=== PATIENT | male | born 1935 | race Caucasian/White ===

== ENCOUNTER 2016-08-12 18:18 | Observation (INO) | payer OTHER ==
[~2016-08-12] VITALS: Ht 182.9 cm; Wt 75.0 kg
[~2016-08-12 18:18] MED LIST: ASPI325T PO; BUDE150T PO; MULT-65 PO; OXYC-360 PO
[2016-08-12 18:22] VITALS: BP 129/78; PULSE 61; RESP 20; TEMP 97.9; O2SAT 97
[2016-08-12] MEDS ORDERED: ASPI1TAB69 PO (22:15)
[2016-08-12] MEDS ORDERED: ATOR20TA15 PO (22:15)
[2016-08-12] MEDS ORDERED: BUPR100T4 PO (22:16)
[2016-08-12] MEDS ORDERED: SODIUM CHLOR 0.9% 1000 ML INJ 1,000 ML IV SCH (22:24)
--- NOTE | 2016-08-12 22:24 | PD ---
HPI Chief Complaint: GI Complaint Time Seen by Provider: 22:08 Travel History International Travel<30 days: No Contact w/Intl Traveler<30days: No Traveled to known affect area: No History of Present Illness HPI The patient is a 80-year-old male who presents emergency department for left lower quadrant abdominal pain and left inguinal pain for one week. The patient states his symptoms started out mild, however, progressively worsened. The patient was seen by his urologist, Dr. Luis, who ordered an outpatient CT the abdomen and pelvis with IV contrast according to the patient. The patient states he had the CT scan completed last week, on , [facility], however, doesn't know the results. He notes increasing pain the left lower quadrant with occasional bulge in the left lower abdomen in the left inguinal region. He denies any history of known inguinal hernias. He does have a history of bladder cancer with previous removal of the bladder and a new bladder form from colon, according to the patient. He denies any dysuria, or change in bowel habits. Symptoms are moderate, there are no known alleviating or exacerbating factors. PFSH Past Medical History Depression: Yes Cancer: Yes (BLADDER CA) Cardiovascular Problems: No Diabetes: No Diminished Hearing: Yes Endocrine: No Gastrointestinal Disorders: Yes (ON PROBIOTICS) Genitourinary: Yes (BLADDER BLOCKAGE) Hepatitis: No Hiatal Hernia: No Hypertension: Yes Immune Disorder: No Medical other: Yes Musculoskeletal: No Neurologic: No Reproductive: Yes (PROSTATE SX) Respiratory: No Immunizations Current: Yes Thyroid Disease: No Influenza Vaccination: Yes Past Surgical History Abdominal Surgery: Yes (PROSTATE AND BLADDER) AICD: No Cardiac Surgery: No Cholecystectomy: Yes (5-6 YEARS AGO) Ear Surgery: No Endocrine Surgery: No Eye Surgery: No Genitourinary Surgery: Yes (PROSTATE AND BLADDER) Joint Replacement: No Oral Surgery: No Pacemaker: No Thoracic Surgery: No Other Surgery: Yes (BLADDER SX, LETA, PROSTATE SX) Social History Alcohol Use: Yes (OCC.) Tobacco Use: Yes (1 PPD) Substance Use: No Allergies-Medications (Allergen,Severity, Reaction): Coded Allergies: Penicillin (Verified Allergy, Severe, Anaphylaxis, 08/12/16) Reported Meds & Prescriptions Reported Meds & Active Scripts Active Reported Bupropion HCl 100 Mg Tab 100 Mg PO HS Atorvastatin (Atorvastatin Calcium) 20 Mg Tab 20 Mg PO HS Aspirin 81 Mg Tabdr 81 Mg PO DAILY Review of Systems Except as stated in HPI: all other systems reviewed are Neg General / Constitutional: No: Fever Cardiovascular: No: Chest Pain or Discomfort Respiratory: No: Shortness of Breath Gastrointestinal: Positive: Abdominal Pain, No: Nausea, Vomiting Genitourinary: Positive: Pelvic Pain, Other (as noted in the history of present illness), No: Dysuria Skin: No Rash Physical Exam Narrative GENERAL: Awake, alert, nontoxic-appearing 80-year-old male who appears his stated age and is in no acute respiratory distress. SKIN: Warm and dry. HEAD: Atraumatic. Normocephalic. EYES: No injection or drainage. ENT: No nasal bleeding or discharge. Mucous membranes pink and moist. NECK: Trachea midline. No JVD. CARDIOVASCULAR: Regular rate and rhythm. No murmur appreciated. RESPIRATORY: No accessory muscle use. Clear to auscultation. Breath sounds equal bilaterally. GASTROINTESTINAL: Abdomen soft, non-tender, mild bulge and left inguinal region which is tender to palpation. Genitourinary: Circumcised phallus. Both testicles are descended. No tenderness over the epididymis or testicle. MUSCULOSKELETAL: No obvious deformities. No clubbing. No cyanosis. No edema. NEUROLOGICAL: Awake and alert. No obvious cranial nerve deficits. Motor grossly within normal limits. Normal speech. PSYCHIATRIC: Appropriate mood and affect; insight and judgment normal. Data Data Last Documented VS Vital Signs Date Time Temp Pulse Resp B/P Pulse Ox O2 Delivery O2 Flow Rate FiO2 08/12/16 23:10 16 96 Room Air 08/12/16 18:22 97.9 61 129/78 Orders Complete Blood Count With Diff (08/12/16 22:24) Comprehensive Metabolic Panel (08/12/16 22:24) Lipase (08/12/16 22:24) Urinalysis - C+S If Indicated (08/12/16 22:24) Ct Abd/Pel W/O Iv Contrast (08/12/16 22:24) Iv Access Insert/Monitor (08/12/16 22:24) Ecg Monitoring (08/12/16 22:24) Oximetry (08/12/16 22:24) Morphine Inj (Morphine Inj) (08/12/16 22:30) Ondansetron Inj (Zofran Inj) (08/12/16 22:30) Sodium Chlor 0.9% 1000 Ml Inj (Ns 1000 M (08/12/16 22:24) Sodium Chloride 0.9% Flush (Ns Flush) (08/12/16 22:30) Urine Culture (08/12/16 23:00) Ciprofloxacin 400 Mg Premix (Cipro 400 M (08/13/16 00:15) Labs Laboratory Tests Test 08/12/16 08/12/16 23:00 23:05 Urine Color YELLOW Urine Turbidity HAZY Urine pH 6.5 Urine Specific [place] 1.011 Urine Protein TRACE mg/dL Urine Glucose (UA) NEG mg/dL Urine Ketones NEG mg/dL Urine Occult Blood TRACE Urine Nitrite NEG Urine Bilirubin NEG Urine Urobilinogen LESS THAN 2.0 MG/DL Urine Leukocyte Esterase LARGE Urine RBC 6 /hpf Urine WBC 49 /hpf Urine WBC Clumps OCC Urine Amorphous Sediment RARE Urine Bacteria MANY /hpf Urine Mucus FEW /lpf Microscopic Urinalysis Comment CULTURE INDICATED White Blood Count 8.3 TH/MM3 Red Blood Count 4.70 MIL/MM3 Hemoglobin 14.8 GM/DL Hematocrit 42.6 % Mean Corpuscular Volume 90.8 FL Mean Corpuscular Hemoglobin 31.4 PG Mean Corpuscular Hemoglobin 34.6 % Concent Red Cell Distribution Width 13.7 % Platelet Count 117 TH/MM3 Mean Platelet Volume 10.4 FL Neutrophils (%) (Auto) 57.0 % Lymphocytes (%) (Auto) 24.4 % Monocytes (%) (Auto) 10.7 % Eosinophils (%) (Auto) 6.5 % Basophils (%) (Auto) 1.4 % Neutrophils # (Auto) 4.7 TH/MM3 Lymphocytes # (Auto) 2.0 TH/MM3 Monocytes # (Auto) 0.9 TH/MM3 Eosinophils # (Auto) 0.5 TH/MM3 Basophils # (Auto) 0.1 TH/MM3 CBC Comment DIFF FINAL Differential Comment Sodium Level 146 MEQ/L Potassium Level 3.6 MEQ/L Chloride Level 112 MEQ/L Carbon Dioxide Level 27.4 MEQ/L Anion Gap 7 MEQ/L Blood Urea Nitrogen 27 MG/DL Creatinine 1.28 MG/DL Estimat Glomerular Filtration 54 ML/MIN Rate Random Glucose 118 MG/DL Calcium Level 8.8 MG/DL Total Bilirubin 0.3 MG/DL Aspartate Amino Transf 13 U/L (AST/SGOT) Alanine Aminotransferase 23 U/L (ALT/SGPT) Alkaline Phosphatase 92 U/L Total Protein 6.3 GM/DL Albumin 3.5 GM/DL Lipase 146 U/L MDM Medical Decision Making Medical Screen Exam Complete: Yes Emergency Medical Condition: Yes Medical Record Reviewed: Yes Interpretation(s) KUB only abdomen x-ray performed at [facility] imaging 20 legs on July 23, 2016 reveals no definite calcifications are seen overlying the kidneys. Nonspecific bowel gas pattern with some air-fluid levels a small and large bowel. Ultrasound bilateral renal bladder performed July 23, 2016 at [facility] imaging reveals new hydronephrosis of the right upper collecting system suggestive of obstruction. Benign I lateral renal cyst. Nonobstructing stone midpole left kidney measuring 7 mm. Last Impressions Abdomen/Pelvis CT 08/12/162223 Signed Impressions: Service Date/Time: Friday, August 12, 2016 22:37 - CONCLUSION: 1. Left inguinal hernia containing small loop of sigmoid colon. Slight inflammatory changes. Surgical consultation recommended. 2. Status post cholecystectomy. 3. Bilateral renal cysts. 4. Prostatectomy. Derek Issa MD Laboratory Tests Test 08/12/16 08/12/16 23:00 23:05 Urine Color YELLOW Urine Turbidity HAZY Urine pH 6.5 Urine Specific [place] 1.011 Urine Protein TRACE mg/dL Urine Glucose (UA) NEG mg/dL Urine Ketones NEG mg/dL Urine Occult Blood TRACE Urine Nitrite NEG Urine Bilirubin NEG Urine Urobilinogen LESS THAN 2.0 MG/DL Urine Leukocyte Esterase LARGE Urine RBC 6 /hpf Urine WBC 49 /hpf Urine WBC Clumps OCC Urine Amorphous Sediment RARE Urine Bacteria MANY /hpf Urine Mucus FEW /lpf Microscopic Urinalysis Comment CULTURE INDICATED White Blood Count 8.3 TH/MM3 Red Blood Count 4.70 MIL/MM3 Hemoglobin 14.8 GM/DL Hematocrit 42.6 % Mean Corpuscular Volume 90.8 FL Mean Corpuscular Hemoglobin 31.4 PG Mean Corpuscular Hemoglobin 34.6 % Concent Red Cell Distribution Width 13.7 % Platelet Count 117 TH/MM3 Mean Platelet Volume 10.4 FL Neutrophils (%) (Auto) 57.0 % Lymphocytes (%) (Auto) 24.4 % Monocytes (%) (Auto) 10.7 % Eosinophils (%) (Auto) 6.5 % Basophils (%) (Auto) 1.4 % Neutrophils # (Auto) 4.7 TH/MM3 Lymphocytes # (Auto) 2.0 TH/MM3 Monocytes # (Auto) 0.9 TH/MM3 Eosinophils # (Auto) 0.5 TH/MM3 Basophils # (Auto) 0.1 TH/MM3 CBC Comment DIFF FINAL Differential Comment Sodium Level 146 MEQ/L Potassium Level 3.6 MEQ/L Chloride Level 112 MEQ/L Carbon Dioxide Level 27.4 MEQ/L Anion Gap 7 MEQ/L Blood Urea Nitrogen 27 MG/DL Creatinine 1.28 MG/DL Estimat Glomerular Filtration 54 ML/MIN Rate Random Glucose 118 MG/DL Calcium Level 8.8 MG/DL Total Bilirubin 0.3 MG/DL Aspartate Amino Transf 13 U/L (AST/SGOT) Alanine Aminotransferase 23 U/L (ALT/SGPT) Alkaline Phosphatase 92 U/L Total Protein 6.3 GM/DL Albumin 3.5 GM/DL Lipase 146 U/L Differential Diagnosis Differential diagnosis includes incarcerated hernia, strangulated hernia, left inguinal hernia, diverticulitis, epididymitis, UTI, volvulus, partial obstruction. Narrative Course IV was established, labs are drawn and sent, and the patient was placed on cardiac telemetry monitoring and continuous pulse oximetry monitoring. I reviewed the [facility] imaging, noted an ultrasound of the kidneys and KUB that was performed last month, but there is no evidence of the CT performed last week. Therefore, CT of the abdomen and pelvis was ordered to evaluate for possible mass versus left inguinal hernia versus diverticulitis. The patient was administered morphine, Zofran, and IV fluids. CT of the abdomen and pelvis reveals sigmoid: Rachel within the left inguinal canal with inflammatory changes. The patient was placed flat with ice over the left groin, the hernia did reduce. However, CT recommended surgical consultation. Unsure if the inflammatory changes are related to diverticulitis versus strangulated hernia that is now reduced. UA is positive for infection, patient does self catheter secondary to his history of bladder cancer with bladder reconstruction. I discussed the patient with Dr. Ware who agrees with 23 hour observation to medicine and he will evaluate the patient in the morning. The hernia has reduced. This is somewhat unusual as the patient had sigmoid colon with inflammatory changes in the left inguinal canal, unsure if this is secondary to his previous surgery with removal of bowel to foreign bladder. As patient's UA was positive, patient was administered Cipro. Patient will be 23 hour observation. Physician Communication Physician Communication I discussed the patient with Dr. Kebede who agrees with 23 hour observation. Diagnosis Primary Impression: Left inguinal hernia Additional Impression: Complicated urinary tract infection Admitting Information Admitting Physician Requests: Observation Condition: Stable Ciaran Ward MD Aug 12, 2016 22:24
[2016-08-12] MEDS ORDERED: MORPHINE SULFATE 4 MG/ML INJ IV PUSH ONE (22:30)
[2016-08-12] MEDS ORDERED: ONDANSETRON HCL 4 MG/2 ML VIAL IVP ONE (22:30)
[2016-08-12] MEDS ORDERED: SODIUM CHLORIDE 0.9% FLUSH 5 ML FLUSH IVF PRN (22:30)
--- NOTE | 2016-08-12 22:55 | RADRPT ---
EXAM DATE/TIME: 08/12/2016 22:37 [facility] COMPARISON: No previous studies available for comparison. INDICATIONS : LLQ abdominal pain for 1 week; history of bladder cancer. ORAL CONTRAST: No oral contrast ingested. RADIATION DOSE: 9.96 CTDIvol (mGy) MEDICAL HISTORY : Hypertension. Carcinoma, bladder. SURGICAL HISTORY : Cholecystectomy. Prostatectomy. ENCOUNTER: Initial ACUITY: 1 week PAIN SCALE: 4/10 LOCATION: Left lower quadrant Abdomen/pelvis TECHNIQUE: Volumetric scanning of the abdomen and pelvis was performed. Using automated exposure control and ad justment of the mA and/or kV according to patient size, radiation dose was kept as low as reasonably achievable to obtain optimal diagnostic quality images. FINDINGS: LOWER LUNGS: The visualized lower lungs are clear. LIVER: Homogeneous density without lesion. There is no dilation of the biliary tree. Post cystectomy. SPLEEN: Normal size without lesion. PANCREAS: Within normal limits. KIDNEYS: Normal in size and shape. There is no mass, stone, or hydronephrosis. Bilateral renal densities. ADRENAL GLANDS: Within normal limits. VASCULAR: There is no aortic aneurysm. BOWEL/MESENTERY: There is left inguinal hernia containing loop of sigmoid colon with some minimal inflammatory changes . No obstruction. Anastomotic sutures in the right abdomen. There is no free intraperitoneal air or fluid. ABDOMINAL WALL: Within normal limits. RETROPERITONEUM: There is no lymphadenopathy. BLADDER: No wall thickening or mass. REPRODUCTIVE: Prostatectomy. INGUINAL: There is no lymphadenopathy or hernia on the right. Left inguinal hernia. MUSCULOSKELETAL: Within normal limits for patient age. CONCLUSION: 1. Left inguinal hernia containing small loop of sigmoid colon. Slight inflammatory changes. Surgical consultation recommended. 2. Status post cholecystectomy. 3. Bilateral renal cysts. 4. Prostatectomy. Derek Issa MD on August 12, 2016 at 22:49 Board Certified Radiologist. This report was verified electronically.
[2016-08-12 23:00] VITALS: BP 134/69; PULSE 54; RESP 20; O2SAT 95
[2016-08-12 23:10] VITALS: RESP 16; O2SAT 96
[2016-08-12 23:29] LABS: AUTOMATED NEUTROPHIL # 4.7 TH/MM3 (1.8-7.7); BASOPHIL # 0.1 TH/MM3 (0-0.2); BASOPHIL % 1.4 % (0.0-2.0); EOSINOPHIL # 0.5 TH/MM3 (0-0.4); EOSINOPHIL % 6.5 % (0.0-4.0); HEMATOCRIT 42.6 % (39.0-51.0); HEMO FLAGS DIFF FINAL; LYMPH % 24.4 % (9.0-44.0); MEAN CELL VOLUME 90.8 FL (80.0-100.0); MEAN CORPUSCULAR HEMOGLOBIN 31.4 PG (27.0-34.0); MEAN CORPUSCULAR HGB CONC 34.6 % (32.0-36.0); MONO % 10.7 % (0.0-8.0); PLATELET COUNT 117 TH/MM3 (150-450); RED CELL DISTRIBUTION WIDTH 13.7 % (11.6-17.2); WHITE BLOOD COUNT 8.3 TH/MM3 (4.0-11.0)
[2016-08-12 23:37] LABS: BACTERIA, URINE MANY /hpf; BLOOD, URINE TRACE (NEG); COMMENT (UR) CULTURE INDICATED; CULTURE IF INDICATED CULTURE INDICATED; GLUCOSE,URINE NEG (NEG); KETONE, URINE NEG (NEG); MUCUS URINE FEW /lpf (OCC); NITRITE,URINE NEG (NEG); PH, URINE 6.5 (5.0-8.5); URINE COLOR YELLOW (YELLW/STRAW)
[2016-08-12 23:41] LABS: ANION GAP 7 MEQ/L (5-15); AST (GOT) 13 U/L (15-37); BICARBONATE 27.4 MEQ/L (21.0-32.0); BLOOD UREA NITROGEN 27 MG/DL (7-18); CHLORIDE 112 MEQ/L (98-107); GLOMERULAR FILTRATION RATE 54 ML/MIN (>89); POTASSIUM 3.6 MEQ/L (3.5-5.1); SODIUM (NA) 146 MEQ/L (136-145)
[2016-08-12 23:44] LABS: ALKALINE PHOSPHATASE 92 U/L (45-117); ALT (GPT) 23 U/L (12-78); TOTAL BILIRUBIN ADULT 0.3 MG/DL (0.2-1.0)
[2016-08-13] MEDS ORDERED: CIPROFLOXACIN 400 MG PREMIX 200 ML IV ONE (00:15)
[2016-08-13 01:00] VITALS: BP 131/60; PULSE 62; RESP 24; O2SAT 95
[2016-08-13] MEDS ORDERED: SODIUM CHLORID 0.9% 500 ML INJ 500 ML IV ONE (01:15)
[2016-08-13] MEDS ORDERED: NALOXONE HCL 0.4 MG/ML AMP IV PRN (01:45)
[2016-08-13] MEDS ORDERED: SODIUM CHLORIDE 0.9% FLUSH 5 ML FLUSH FLUSH PRN (01:45)
[2016-08-13] MEDS ORDERED: ONDANSETRON HCL 4 MG/2 ML VIAL IVP PRN (01:45)
[2016-08-13 03:06] VITALS: BP 113/64; PULSE 58; RESP 17; TEMP 96.5; O2SAT 94
--- NOTE | 2016-08-13 04:29 | HHI.HP ---
HPI Service [facility] Primary Care Physician Alba Gonzalez M.D. Admission Diagnosis left inguinal hernia with sigmoid colon with inflammation, UTI Diagnoses: Chief Complaint: abdominal pain Travel History International Travel<30 Days: No Contact w/Intl Traveler <30 Da: No Traveled to Known Affected Are: No History of Present Illness History from patient, ER physician communication, and review of medical records. Patient reported that he started having sharp abdominal pains in his left lower quadrant radiating down to his groin area yesterday. He stated that initially he thought it would go away and as the day goes on the pain was getting worse and therefore decided to come to hospital. He reports that he was having similar pain though it was not as severe as yesterday's episode for about a week or so. He also reports of bulging in that area on and off as well. He states that he had previous surgeries because of his bladder cancer and he thought that there might be something related to it. He stated that he had removal of this bladder and a new bladder was formed by reconstruction using pot of his colon. He denies any fever. Denies any nausea/vomiting/diarrhea/constipation. Denies any hematemesis/hematochezia/melena/hematuria. Denies any urinary burning or pain on urination. Review of Systems Except as stated in HPI: all other systems reviewed are Neg Past Family Social History Past Medical History Bladder CA Depression Hyperlipidemia Past Surgical History Bladder cancer resection Reconstructive surgery for bladder Cholecystectomy Appendectomy Prostate surgery Reported Medications Patient's medications listed in EMRreviewed Allergies: Coded Allergies: Penicillin (Verified Allergy, Severe, Anaphylaxis, 08/12/16) Family History Denies any family history of any medical conditions. Social History Denies alcohol abuse or drug abuse. Unfortunately, patient is a smoker and is still smoking a pack a day. Physical Exam Vital Signs Vital Signs Date Time Temp Pulse Resp B/P Pulse Ox O2 Delivery O2 Flow Rate FiO2 08/13/16 01:00 62 24 131/60 95 Room Air 08/12/16 23:10 16 96 Room Air 08/12/16 23:00 54 20 134/69 95 Room Air 08/12/16 18:22 97.9 61 20 129/78 97 Room Air Physical Exam GENERAL: This is a well-nourished, well-developed patient, in no apparent distress. SKIN: No rashes, ecchymoses or lesions. Cool and dry. HEAD: Atraumatic. Normocephalic. No temporal or scalp tenderness. EYES: . No scleral icterus. No injection or drainage. ENT: Nose without bleeding, purulent drainage or septal hematoma. Airway patent. NECK: Trachea midline. No JVD CARDIOVASCULAR: Regular rate and rhythm without murmurs, gallops, or rubs. RESPIRATORY: Clear to auscultation. Breath sounds equal bilaterally. No wheezes , rales, or rhonchi. GASTROINTESTINAL: Abdomen soft, non-tender, nondistended. No guarding. MUSCULOSKELETAL: Extremities without clubbing, cyanosis, or edema. No calf tenderness. NEUROLOGICAL: Awake and alert. Motor and sensory grossly within normal limits. Normal speech. Laboratory Laboratory Tests Test 08/12/16 08/12/16 23:00 23:05 Urine Color YELLOW Urine Turbidity HAZY Urine pH 6.5 Urine Specific [place] 1.011 Urine Protein TRACE Urine Glucose (UA) NEG Urine Ketones NEG Urine Occult Blood TRACE Urine Nitrite NEG Urine Bilirubin NEG Urine Urobilinogen LESS THAN 2.0 Urine Leukocyte Esterase LARGE Urine RBC 6 Urine WBC 49 Urine WBC Clumps OCC Urine Amorphous Sediment RARE Urine Bacteria MANY Urine Mucus FEW Microscopic Urinalysis Comment CULTURE INDICATED White Blood Count 8.3 Red Blood Count 4.70 Hemoglobin 14.8 Hematocrit 42.6 Mean Corpuscular Volume 90.8 Mean Corpuscular Hemoglobin 31.4 Mean Corpuscular Hemoglobin 34.6 Concent Red Cell Distribution Width 13.7 Platelet Count 117 Mean Platelet Volume 10.4 Neutrophils (%) (Auto) 57.0 Lymphocytes (%) (Auto) 24.4 Monocytes (%) (Auto) 10.7 Eosinophils (%) (Auto) 6.5 Basophils (%) (Auto) 1.4 Neutrophils # (Auto) 4.7 Lymphocytes # (Auto) 2.0 Monocytes # (Auto) 0.9 Eosinophils # (Auto) 0.5 Basophils # (Auto) 0.1 CBC Comment DIFF FINAL Differential Comment Sodium Level 146 Potassium Level 3.6 Chloride Level 112 Carbon Dioxide Level 27.4 Anion Gap 7 Blood Urea Nitrogen 27 Creatinine 1.28 Estimat Glomerular Filtration 54 Rate Random Glucose 118 Calcium Level 8.8 Total Bilirubin 0.3 Aspartate Amino Transf 13 (AST/SGOT) Alanine Aminotransferase 23 (ALT/SGPT) Alkaline Phosphatase 92 Total Protein 6.3 Albumin 3.5 Lipase 146 Date/Time Procedure Status Source Growth 08/12/16 23:00 Urine Culture Received Urine Clean Catch Pending Result Diagram: 08/12/16 23008/12/162304 Imaging Last 48 hours Impressions Abdomen/Pelvis CT 08/12/162223 Signed Impressions: Service Date/Time: Friday, August 12, 2016 22:37 - CONCLUSION: 1. Left inguinal hernia containing small loop of sigmoid colon. Slight inflammatory changes. Surgical consultation recommended. 2. Status post cholecystectomy. 3. Bilateral renal cysts. 4. Prostatectomy. Dreek Issa MD Assessment and Plan Problem List: (1) Left inguinal hernia ICD Code: K40.90 Status: Acute (2) Complicated urinary tract infection ICD Code: N39.0 Status: Acute Assessment and Plan Impression: Left Inguinal herniawith loops of sigmoid colon. Was reduced in ER. 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 Awaiting for general surgery evaluation. Pain control. Ciprofloxacin 400 mg IV every 12 hours for UTI. Will follow-up urine culture results. Resume home meds. DVT prophylaxiswith SCD. GI prophylaxis on pantoprazole. Discussed Condition With patient, ER Tracee Henry MD Aug 13, 2016 04:29
[2016-08-13 08:00] VITALS: BP 119/73; PULSE 50; RESP 16; TEMP 96.2; O2SAT 94
[2016-08-13] MEDS ORDERED: SODIUM CHLORIDE 0.9% FLUSH 5 ML FLUSH FLUSH SCH (09:00)
[2016-08-13] MEDS ORDERED: ASPIRIN EC 81 MG TABEC PO SCH (09:00)
--- NOTE | 2016-08-13 09:35 | HHI.PR ---
Subjective Remarks f/u with reduction of left inguinal hernia. patient has no complaints. He denied any pain, N/V. He stated he is ready to go home and rather no do surgery if not indicated. no acute events at night and remains afebrile. Objective Vitals Vital Signs Date Time Temp Pulse Resp B/P Pulse Ox O2 Delivery O2 Flow Rate FiO2 08/13/16 03:06 96.5 58 17 113/64 94 08/13/16 01:00 62 24 131/60 95 Room Air 08/12/16 23:10 16 96 Room Air 08/12/16 23:00 54 20 134/69 95 Room Air 08/12/16 18:22 97.9 61 20 129/78 97 Room Air I/O 08/12/16 08/12/16 08/12/16 08/13/16 08/13/16 08/13/16 07:00 15:00 23:00 07:00 15:00 23:00 Intake Total 0 ml Output Total 0 ml Balance 0 ml Intake Oral 0 ml Output Urine Total 0 ml # Bowel Movements 0 Result Diagram: 08/12/16 2305 08/12/16 2305 Objective Remarks GENERAL: in NAD SKIN: Warm and dry. CARDIOVASCULAR: Regular rate and rhythm without murmurs, gallops, or rubs. RESPIRATORY: Breath sounds equal bilaterally. No accessory muscle use. GASTROINTESTINAL: Abdomen soft, non-tender, nondistended. left groin area mild TTP. hernia reduced Medications and IVs Current Medications Morphine Sulfate (Morphine Inj) 4 mg ONCE ONCE IV PUSH Last administered on 23:11; Start 08/12/16 at 22:30; Stop 08/12/16 at 22:31; Status DC Ondansetron HCl 4 mg 4 mg ONCE ONCE IVP Last administered on 08/12/16 23:12; Start 08/12/16 at 22:30; Stop 08/12/16 at 22:31; Status DC Sodium Chloride (NS 1000 ml Inj) 1,000 ml @ 125 mls/hr Q8H IV Last administered on 08/12/16 23:11; Start 08/12/16 at 22:24; Stop 08/13/16 at 06:23; Status DC IV Flush 2 ml 2 ml UNSCH PRN IVF FLUSH AFTER USING IV ACCESS; Start 08/12/16 at 22:30; Stop 08/13/16 at 01:43; Status DC Ciprofloxacin/ Dextrose 200 ml @ 200 mls/hr ONCE ONCE IV Last administered on 08/13/16t 01:13; Start 08/13/16 at 00:15; Stop 08/13/16 at 01:14; Status DC Sodium Chloride (NS 500 ml Inj) 500 ml @ 500 mls/hr BOLUS ONCE IV ; Start 08/13 at 01:15; Stop 08/13/16 at 02:14; Status DC IV Flush (NS Flush) 2 ml UNSCH PRN FLUSH FLUSH AFTER USING IV ACCESS; Start 08/13/16 at 01:45 IV Flush (NS Flush) 2 ml BID FLUSH ; Start 08/13/16 at 09:00 Ondansetron HCl (Zofran Inj) 4 mg Q6H PRN IVP NAUSEA OR VOMITING; Start at 01:45 Naloxone HCl 0.4 mg 0.4 mg UNSCH PRN IV SEE LABEL COMMENTS; Start 08/13/16 at 01 :45 Ciprofloxacin/ Dextrose (Cipro 400 Mg Premix) 200 ml @ 200 mls/hr Q12H IV ; Start 08/13/16 at 13:00 Aspirin (Ecotrin Ec) 81 mg DAILY PO ; Start 08/13/16 at 09:00 Atorvastatin Calcium (Lipitor) 20 mg HS PO ; Start 08/13/16 at 21:00 Bupropion HCl (Wellbutrin) 100 mg HS PO ; Start 08/13/16 at 21:00 A/P Problem List: (1) Left inguinal hernia ICD Code: K40.90 Status: Acute (2) Complicated urinary tract infection ICD Code: N39.0 Status: Acute Assessment and Plan Left Inguinal hernia with loops of sigmoid colon. - Was reduced in ER. -pending recommendations from general surgery. -at the moment asymptomatic. -continue NPO pending recommendations. UTI -asymptomatic. 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 -continue pending cultures. DVT prophylaxiswith SCD. GI prophylaxis on pantoprazole. Discharge Planning Pending recommendations from Surgery. At the moment asymptotic. If no indication for surgery can be d/c to home. Tahira Delatorre MD Aug 13, 2016 09:35
--- NOTE | 2016-08-13 11:34 | PD.CONS ---
cc: Farhad Ware MD HPI Service General Surgery Consult Requested By Dr. Kebede Reason for Consult Eval for LEFT inguinal hernia Primary Care Physician Alba Gonzalez M.D. History of Present Illness This is a 80-year-old male who started having left groin pain about a week ago. The pain is a 5/10, currently 6/10, dull, radiating down groin, worse with movement, better with pain meds. He noticed over this time a bulge developed an increase inside size over this week. 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 He came to the emergency room for evaluation of the pain. He was found to have a left inguinal hernia which was reduced in the ED. Currently the patient reports no pain since the hernia was reduced and is passing gas. He feels hungry. A General surgery consult was requested for evaluation of left inguinal hernia and possible surgical intervention Review of Systems Constitutional: DENIES: Fever, Weight gain, Weight loss Endocrine: DENIES: Polydipsia, Polyuria, Polyphagia Eyes: DENIES: Eye inflammation, Eye pain Ears, nose, mouth, throat: DENIES: Hearing loss, Nasal discharge, Oral lesions Respiratory: DENIES: Cough, Snoring, Wheezing Cardiovascular: DENIES: Chest pain, Palpitations Gastrointestinal: DENIES: Abdominal pain Genitourinary: DENIES: Urinary frequency, Urinary incontinence, Urgency Musculoskeletal: DENIES: Joint pain Integumentary: DENIES: Abnormal pigmentation Hematologic/lymphatic: DENIES: Bruising Immunologic/allergic: DENIES: Eczema Neurologic: DENIES: Abnormal gait, Headache Psychiatric: DENIES: Confusion, Mood changes, Depression Past Family Social History Past Medical History Bladder cancer Depression Hyperlipidemia Past Surgical History Bladder cancer resection Reconstructive surgery for bladder Cholecystectomy Appendectomy Prostate surgery Reported Medications See chart Allergies: Coded Allergies: Penicillin (Verified Allergy, Severe, Anaphylaxis, 08/12/16) Active Ordered Medications Current Medications Medications (Trade) Dose Ordered Sig/Em Route Start Time Stop Time Status Last Admin (NS Flush) 2 ml UNSCH PRN FLUSH 08/13/16 01:45 (NS Flush) 2 ml BID FLUSH 08/13/16 09:00 (Zofran Inj) 4 mg Q6H PRN IVP 08/13/16 01:45 Naloxone HCl 0.4 mg 0.4 mg UNSCH PRN IV 08/13/16 01:45 (Cipro 400 Mg Premix) 200 ml @ 200 mls/hr Q12H IV 08/13/16 13:00 (Ecotrin Ec) 81 mg DAILY PO 08/13/16 09:00 (Lipitor) 20 mg HS PO 08/13/16 21:00 (Wellbutrin) 100 mg HS PO 08/13/16 21:00 Family History Noncontributory Social History Current smoker-1 pack per day Denies alcohol use Denies illicit drug use Physical Exam Vital Signs Vital Signs Date Time Temp Pulse Resp B/P Pulse Ox O2 Delivery O2 Flow Rate FiO2 08/13/16 08:00 96.2 50 16 119/73 94 08/13/16 03:06 96.5 58 17 113/64 94 08/13/16 01:00 62 24 131/60 95 Room Air 08/12/16 23:10 16 96 Room Air 08/12/16 23:00 54 20 134/69 95 Room Air 08/12/16 18:22 97.9 61 20 129/78 97 Room Air Physical Exam GENERAL: 80 year old male looks younger than stated age resting in bed comfortably SKIN: Warm and dry. HEAD: Atraumatic. Normocephalic. EYES: Pupils equal and round. No scleral icterus. No injection or drainage. ENT: No nasal bleeding or discharge. Mucous membranes pink and moist. NECK: Trachea midline. CARDIOVASCULAR: Regular rate and rhythm. RESPIRATORY: No accessory muscle use. Clear to auscultation. Breath sounds equal bilaterally. GASTROINTESTINAL: Abdomen soft, non-tender, nondistended. No pain in LEFT inguinal region; no hernia. MUSCULOSKELETAL: Extremities without clubbing, cyanosis, or edema. No obvious deformities. NEUROLOGICAL: Awake and alert. No obvious cranial nerve deficits. Motor grossly within normal limits. Five out of 5 muscle strength in the arms and legs. Normal speech. PSYCHIATRIC: Appropriate mood and affect; insight and judgment normal. Laboratory Laboratory Tests Test 08/12/16 08/12/16 23:00 23:05 Urine Color YELLOW Urine Turbidity HAZY Urine pH 6.5 Urine Specific [place] 1.011 Urine Protein TRACE Urine Glucose (UA) NEG Urine Ketones NEG Urine Occult Blood TRACE Urine Nitrite NEG Urine Bilirubin NEG Urine Urobilinogen LESS THAN 2.0 Urine Leukocyte Esterase LARGE Urine RBC 6 Urine WBC 49 Urine WBC Clumps OCC Urine Amorphous Sediment RARE Urine Bacteria MANY Urine Mucus FEW Microscopic Urinalysis Comment CULTURE INDICATED White Blood Count 8.3 Red Blood Count 4.70 Hemoglobin 14.8 Hematocrit 42.6 Mean Corpuscular Volume 90.8 Mean Corpuscular Hemoglobin 31.4 Mean Corpuscular Hemoglobin 34.6 Concent Red Cell Distribution Width 13.7 Platelet Count 117 Mean Platelet Volume 10.4 Neutrophils (%) (Auto) 57.0 Lymphocytes (%) (Auto) 24.4 Monocytes (%) (Auto) 10.7 Eosinophils (%) (Auto) 6.5 Basophils (%) (Auto) 1.4 Neutrophils # (Auto) 4.7 Lymphocytes # (Auto) 2.0 Monocytes # (Auto) 0.9 Eosinophils # (Auto) 0.5 Basophils # (Auto) 0.1 CBC Comment DIFF FINAL Differential Comment Sodium Level 146 Potassium Level 3.6 Chloride Level 112 Carbon Dioxide Level 27.4 Anion Gap 7 Blood Urea Nitrogen 27 Creatinine 1.28 Estimat Glomerular Filtration 54 Rate Random Glucose 118 Calcium Level 8.8 Total Bilirubin 0.3 Aspartate Amino Transf 13 (AST/SGOT) Alanine Aminotransferase 23 (ALT/SGPT) Alkaline Phosphatase 92 Total Protein 6.3 Albumin 3.5 Lipase 146 Date/Time Procedure Status Source Growth 08/12/16 23:00 Urine Culture Received Urine Clean Catch Pending Imaging Last 48 hours Impressions Abdomen/Pelvis CT 08/12/164 Signed Impressions: Service Date/Time: Friday, August 12, 2016 22:37 - CONCLUSION: 1. Left inguinal hernia containing small loop of sigmoid colon. Slight inflammatory changes. Surgical consultation recommended. 2. Status post cholecystectomy. 3. Bilateral renal cysts. 4. Prostatectomy. Derek Issa MD Assessment and Plan Assessment and Plan 80 year old male with LEFT inguinal hernia s/p reduction in ED -Denies pain and left normal region; no palpable hernia -Start regular diet -DC fluids -If tolerates regular diet may DC this afternoon and follow with Dr. Ware for possible elective left inguinal hernia repair Discussed Condition With Dr. Ware Nadiya Carbajal Attending Statement patient seen at bedside reduced left inguinal hernia, pain better reg diet possible d/c with elective repair discussed with patient in detail regarding risks of reincarceration pt states understanding Attestation The exam, history, and the medical decision-making described in the above note were completed with the assistance of the mid-level provider. I reviewed and agree with the findings presented. I attest that I had a [id number] encounter with the patient on the same day, and personally performed and documented my assessment and findings in the medical record. Radha Berman Aug 13, 2016 11:34 Farhad Ware MD Aug 22, 2016 21:06
--- NOTE | 2016-08-13 11:57 | HHI.DCPOC ---
Discharge Care Plan Diagnosis: (1) Left inguinal hernia (2) Complicated urinary tract infection Goals to Promote Your Health * To prevent worsening of your condition and complications * To maintain your health at the optimal level Directions to Meet Your Goals Take your medications as prescribed Follow your dietary instruction Follow activity as directed Keep your appointments as scheduled Take your immunizations and boosters as scheduled If your symptoms worsen call your PCP, if no PCP go to Urgent Care Center or Emergency Room Smoking is Dangerous to Your Health. Avoid second hand smoke Call the 24-hour hour crisis hotline for domestic abuse at Tahira Delatorre MD Aug 13, 2016 11:57
[2016-08-13] MEDS ORDERED: CIPR-9 PO ×2 (11:58→14:20)
[2016-08-13 12:00] VITALS: BP 120/74; PULSE 57; RESP 16; TEMP 97.8; O2SAT 95
[2016-08-13] MEDS ORDERED: CIPROFLOXACIN 400 MG PREMIX 200 ML IV SCH (13:00)
[2016-08-13] MEDS ORDERED: ATORVASTATIN 20 MG TAB PO SCH (21:00)
[2016-08-13] MEDS ORDERED: buPROPion HCL 100 MG TAB PO SCH (21:00)
--- NOTE | 2016-08-17 20:58 | HHI.DS ---
Discharge Summary Admission Date Aug 13, 2016 at 00:08 Discharge Date: Aug 13, 2016 Admitting Diagnosis left inguinal hernia with sigmoid colon with inflammation, UTI (1) Left inguinal hernia ICD Code: K40.90 Diagnosis: Principal (2) Complicated urinary tract infection ICD Code: N39.0 Diagnosis: Principal Procedures see hospital course Brief History - From Admission History from patient, ER physician communication, and review of medical records. Patient reported that he started having sharp abdominal pains in his left lower quadrant radiating down to his groin area yesterday. He stated that initially he thought it would go away and as the day goes on the pain was getting worse and therefore decided to come to hospital. He reports that he was having similar pain though it was not as severe as yesterday's episode for about a week or so. He also reports of bulging in that area on and off as well. He states that he had previous surgeries because of his bladder cancer and he thought that there might be something related to it. He stated that he had removal of this bladder and a new bladder was formed by reconstruction using pot of his colon. He denies any fever. Denies any nausea/vomiting/diarrhea/constipation. Denies any hematemesis/hematochezia/melena/hematuria. Denies any urinary burning or pain on urination. Imaging Last Impressions Abdomen/Pelvis CT 08/12/16 9250 Signed Impressions: Service Date/Time: Friday, August 12, 2016 22:37 - CONCLUSION: 1. Left inguinal hernia containing small loop of sigmoid colon. Slight inflammatory changes. Surgical consultation recommended. 2. Status post cholecystectomy. 3. Bilateral renal cysts. 4. Prostatectomy. Derek Issa MD PE at Discharge GENERAL: in NAD SKIN: Warm and dry. CARDIOVASCULAR: Regular rate and rhythm without murmurs, gallops, or rubs. RESPIRATORY: Breath sounds equal bilaterally. No accessory muscle use. GASTROINTESTINAL: Abdomen soft, non-tender, nondistended. left groin area mild TTP. hernia reduced Hospital Course Left Inguinal hernia with loops of sigmoid colon. - Was reduced in ER and pain drastically improve. -per surgery no surgery indicated at the moment. can f/u as outpatient for elective surgery. -patient tolerated PO intake and pain controlled at time of discharge. UTI -asymptomatic. 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 -continue pending cultures but most likely containment. will treat empirically and patient to f/u with his PCP for urine cultures result.. Pt Condition on Discharge: Good Discharge Disposition: Discharge Home Discharge Time: <= 30 minutes Discharge Instructions DIET: Follow Instructions for: Heart Healthy Diet Activities you can perform: Regular-No Restrictions Follow up Referrals: PCP Follow-up - 3-5 Days Surgical - 2 Weeks with Farhad Ware MD New Medications: Ciprofloxacin (Cipro) 500 Mg Tab 500 MG PO BID Infection #14 Ref 0 TAB Continued Medications: Aspirin (Aspirin) 81 Mg Tabdr 81 MG PO DAILY TAB Atorvastatin (Atorvastatin) 20 Mg Tab 20 MG PO HS Cholesterol Management #30 Ref 0 TAB Bupropion HCl (Bupropion HCl) 100 Mg Tab 100 MG PO HS Control Depression Ref 0 TAB Tahira Delatorre MD Aug 17, 2016 20:58
== END 2016-08-13 14:58 | disposition home or self-care (01) ==
LOC: NEPE 18:18 → NEDA 08-13 00:08 → N06B 08-13 03:07
PROVIDERS: ADMIT Family Medicine; ATTEND Family Medicine
DX: K40.90 Unilateral inguinal hernia, without obstruction or gangrene, not specified as recurrent (principal); N39.0 Urinary tract infection, site not specified; N28.1 Cyst of kidney, acquired; F32.9 Major depressive disorder, single episode, unspecified; E78.5 Hyperlipidemia, unspecified; F17.200 Nicotine dependence, unspecified, uncomplicated; I10 Essential (primary) hypertension; Z88.0 Allergy status to penicillin; Z85.51 Personal history of malignant neoplasm of bladder
CPT/HCPCS: 74176; 80053; 81001; 83690; 85025; 87086; 96374; 96375; 97161; 99284; G0378; J0744; J2270; J2405; J7030

== ENCOUNTER 2017-07-08 10:57 | Emergency (ER) | payer OTHER ==
[~2017-07-08] VITALS: Ht 182.9 cm; Wt 74.5 kg
[~2017-07-08 10:57] MED LIST changes: +ASPI1TAB69 PO; -ASPI325T PO; +ATOR20TA15 PO; -BUDE150T PO; +BUPR100T4 PO; +CIPR-9 PO; -MULT-65 PO; -OXYC-360 PO
[2017-07-08 11:03] VITALS: BP 147/79; PULSE 63; RESP 14; TEMP 98.1; O2SAT 98
[2017-07-08] MEDS ORDERED: ACETAMINOPHEN/HYDROcodone 325 MG/5 MG TAB PO ONE (11:30)
--- NOTE | 2017-07-08 11:58 | RADRPT ---
EXAM DATE/TIME: 07/08/2017 11:41 [facility] COMPARISON: No previous studies available for comparison. INDICATIONS : Pain in his left leg. MEDICAL HISTORY : left inguinal hernia SURGICAL HISTORY : mole frozen off of left thigh yesterday ENCOUNTER: Initial ACUITY: 2 days PAIN SCORE: 10/10 LOCATION: Left femur FINDINGS: Two view examination of the left femur demonstrates no evidence of fracture or dislocation. There is diffuse osteopenia. Mild degenerative changes present in the hip with sclerosis and mild hypertrophic change. Mild degenerative changes in the knee as well. The soft tissue structures are intact. CONCLUSION: 1. Degenerative changes in the left hip and knee 2. Osteopenia. Best Mccarthy MD on July 08, 2017 at 11:55 Board Certified Radiologist. This report was verified electronically.
--- NOTE | 2017-07-08 12:08 | RADRPT ---
EXAM DATE/TIME: 07/08/2017 11:47 [facility] COMPARISON: No previous studies available for comparison. INDICATIONS : Left leg pain. MEDICAL HISTORY : left inguinal hernia SURGICAL HISTORY : mole removed from left thigh yesterday ENCOUNTER: Initial ACUITY: 2 days PAIN SCORE: 8/10 LOCATION: Left knee FINDINGS: No fracture is seen. The knee joint is normally aligned. No effusion is seen. There is chronic hypert rophic change of the superior aspect of the patella. CONCLUSION: No acute abnormality is seen. There is chronic hypertrophic change seen superior to the patella. Arnulfo Gutierrez MD on July 08, 2017 at 12:06 Board Certified Radiologist. This report was verified electronically.
--- NOTE | 2017-07-08 12:18 | RADRPT ---
EXAM DATE/TIME: 07/08/2017 11:58 [facility] COMPARISON: No previous studies available for comparison. INDICATIONS : Left leg pain. MEDICAL HISTORY : Hypertension. Hearing loss. Hiatal hernia. Depression. Bladder cancer. SURGICAL HISTORY : Cholecystectomy. Bladder surgery. Prostate surgery. ENCOUNTER: Initial ACUITY: 1 day PAIN SCORE: 3/10 LOCATION: Left leg. TECHNIQUE: Venous ultrasound of the leg was performed from the inguinal ligament to the proximal calf. Real-arnoldo e, color Doppler and spectral tracing, compression and augmentation techniques were used. FINDINGS: There is normal compressibility of the deep venous system from the inguinal region to the proximal ca lf. No echogenic clot is seen in the lumen of the common femoral, femoral, popliteal, and posterior tibial veins. There is a normal response of the venous system to proximal and distal augmentation an d respiration. CONCLUSION: No DVT. Arnulfo Gutierrez MD on July 08, 2017 at 12:15 Board Certified Radiologist. This report was verified electronically.
--- NOTE | 2017-07-08 12:39 | RADRPT ---
EXAM DATE/TIME: 07/08/2017 11:41 [facility] COMPARISON: No previous studies available for comparison. INDICATIONS : Left leg pain, no known trauma MEDICAL HISTORY : left inguinal hernia SURGICAL HISTORY : mole removed from left thigh yesterday, prostate surgery ENCOUNTER: Initial ACUITY: 2 days PAIN SCORE: 10/10 LOCATION: Left hip and pelvis FINDINGS: 3 images of the pelvis and left hip show bilateral os arthritis of the hips. This is more pronounced on the right. 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 No femoral head flattening. No fracture or dislocation. Osteopenia noted. CONCLUSION: Osteoarthritis of the hips. No acute abnormality. Fredrick Everett Jr., MD on July 08, 2017 at 12:34 Board Certified Radiologist. This report was verified electronically.
--- NOTE | 2017-07-08 12:48 | PD ---
HPI Chief Complaint: Pain: Acute or Chronic Time Seen by Provider: 11:13 Travel History International Travel<30 days: No Contact w/Intl Traveler<30days: No Traveled to known affect area: No History of Present Illness HPI This is a 81-year-old male who presents to the emergency department with onset of left leg pain that started yesterday, intermittent, severe, sharp and shooting extending from where his leg meets his torso down to his knee. The pain is worse with walking and improved with rest. He denies any numbness or weakness. He has never had pain like this before. He does have a known inguinal hernia which has been checked recently earlier this week with no issue. PFSH Past Medical History Anxiety: No Depression: Yes Cancer: Yes (BLADDER CA) Cardiovascular Problems: No Chemotherapy: No Diabetes: No Diminished Hearing: Yes Endocrine: No Gastrointestinal Disorders: Yes (ON PROBIOTICS) Genitourinary: Yes (BLADDER BLOCKAGE) Hepatitis: No Hiatal Hernia: Yes Hypertension: Yes Immune Disorder: No Medical other: Yes Musculoskeletal: No Neurologic: No Reproductive: Yes (PROSTATE SX) Respiratory: No Immunizations Current: Yes Radiation Therapy: No Thyroid Disease: No Past Surgical History Abdominal Surgery: Yes (PROSTATE AND BLADDER) AICD: No Cardiac Surgery: No Cholecystectomy: Yes (5-6 YEARS AGO) Ear Surgery: No Endocrine Surgery: No Eye Surgery: No Genitourinary Surgery: Yes (PROSTATE AND BLADDER) Joint Replacement: No Oral Surgery: No Pacemaker: No Thoracic Surgery: No Other Surgery: Yes (BLADDER SX, LETA, PROSTATE SX) Social History Alcohol Use: Yes (OCC.) Tobacco Use: Yes (1 PPD) Substance Use: No Allergies-Medications (Allergen,Severity, Reaction): Coded Allergies: penicillin G (Unverified Allergy, Severe, Anaphylaxis, 07/08/17) Reported Meds & Prescriptions Reported Meds & Active Scripts Active Cipro (Ciprofloxacin HCl) 500 Mg Tab 500 Mg PO BID Reported Bupropion HCl 100 Mg Tab 100 Mg PO HS Atorvastatin (Atorvastatin Calcium) 20 Mg Tab 20 Mg PO HS Aspirin 81 Mg Tabdr 81 Mg PO DAILY Review of Systems Except as stated in HPI: all other systems reviewed are Neg Physical Exam Narrative GENERAL:Well appearing, no acute distress SKIN: Focused skin assessment warm and dry. HEAD: Atraumatic. Normocephalic. EYES: Pupils equal and round. No injection or drainage. ENT: Moist mucous membranes NECK: Trachea midline. CARDIOVASCULAR: Regular rate and rhythm. No murmur appreciated. 1+ bilateral DP pulses with normal capillary refill. RESPIRATORY: Clear to auscultation. Breath sounds equal bilaterally. GASTROINTESTINAL: Abdomen soft, non-tender, nondistended. MUSCULOSKELETAL: Tender to palpation along the left lower extremity proximal to the knee. Full painless range of motion of the hip and knee. No swelling. NEUROLOGICAL: Awake and alert. No obvious cranial nerve deficits. Moving all extremities. PSYCHIATRIC: Appropriate mood and affect; insight and judgment normal. Data Data Last Documented VS Vital Signs Date Time Temp Pulse Resp B/P (MAP) Pulse Ox O2 Delivery O2 Flow Rate FiO2 07/08/17 11:03 98.1 63 14 147/79 (101) 98 Orders Orders Femur (Ap & Lat/2vws) (07/08/17 ) Hip, Uni(Ap&Lat) W Ap Pelvis (07/08/17 ) Knee, Complete (4vws) (07/08/17 ) Us Leg Venous Doppler (07/08/17 ) Acetamin-Hydrocod 325-5 Mg ([place] 5-325 (07/08/17 11:30) Ketorolac Inj (Toradol Inj) (07/08/17 13:00) Orphenadrine Inj (Norflex Inj) (07/08/17 13:00) Ondansetron Odt (Zofran Odt) (07/08/17 13:00) MDM Medical Decision Making Medical Screen Exam Complete: Yes Emergency Medical Condition: Yes Interpretation(s) afebrile, no tachycardia, mild hypertension Last 24 hours Impressions Lower Extremity Ultrasound 07/08/17 0000 Signed Impressions: Service Date/Time: July 11:58 - CONCLUSION: No DVT. Arnulfo Gutierrez MD Knee X-Ray 07/08/17 0000 Signed Impressions: Service Date/Time: July 11:47 - CONCLUSION: No acute abnormality is seen. There is chronic hypertrophic change seen superior to the patella. Arnulfo Gutierrez MD Hip and Pelvis X-Ray 07/08/17 0000 Signed Impressions: Service Date/Time: July 11:41 - CONCLUSION: Osteoarthritis of the hips. No acute abnormality. Fredrick Everett Jr., MD Femur X-Ray 07/08/17 0000 Signed Impressions: Service Date/Time: July 11:41 - CONCLUSION: 1. Degenerative changes in the left hip and knee 2. Osteopenia. Best Mccarthy MD Differential Diagnosis Osteoarthritis, DVT, fracture, malignancy Narrative Course This is a 81-year-old male who presents to the emergency department with pain predominantly in his left femur and the muscles of the left leg proximal to the knee. He is tender with palpation of the hamstrings. He has normal neurovascular exam. He has relatively painless range of motion of the left hip with some pain in the knee. X-rays were obtained which demonstrate osteoarthritis but no evidence of acute fracture or obvious malignancy. Ultrasound was obtained which was negative for DVT. I considered statin myopathy but the patient reports he is not taking atorvastatin. I suspect the patient is suffering from osteoarthritis. He was given anti-inflammatory and muscle relaxer and he feels much better. He was advised to follow-up with orthopedics as an outpatient. Diagnosis Primary Impression: Osteoarthritis of left lower extremity Referrals: Baltazar Phillips MD Patient Instructions: General Instructions Additional Instructions: If you develop fever, chills, coolness, numbness, weakness of your leg, or worsening or severe pain return to the emergency department. Follow up with an orthopedic surgeon as soon as possible. Med/Other Pt SpecificInfo: Prescription(s) given Scripts Tramadol (Tramadol) 50 Mg Tab 50 MG PO Q6H Y for PAIN, #12 TAB 0 Refills Prov: Lacey Nagy MD 07/08/17 Disposition: 01 DISCHARGE HOME Condition: Stable Lacey Nagy MD Jul 08, 2017 12:48
[2017-07-08] MEDS ORDERED: ORPHENADRINE INJ 60 MG/2 ML AMP IM ONE (13:00)
[2017-07-08] MEDS ORDERED: KETOROLAC TROMETHAMINE 60 MG/2 ML (IM) VIAL IM ONE (13:00)
[2017-07-08] MEDS ORDERED: ONDANSETRON ODT 4 MG TAB PO ONE (13:00)
[2017-07-08] MEDS ORDERED: TRAM50TA PO (14:16)
== END 2017-07-08 15:40 | disposition home or self-care (01) ==
LOC: NEPD 10:57
DX: M16.0 Bilateral primary osteoarthritis of hip (principal); M17.12 Unilateral primary osteoarthritis, left knee; M85.852 Other specified disorders of bone density and structure, left thigh; I10 Essential (primary) hypertension; F32.9 Major depressive disorder, single episode, unspecified; F17.200 Nicotine dependence, unspecified, uncomplicated; Z88.0 Allergy status to penicillin; Z79.82 Long term (current) use of aspirin; Z79.899 Other long term (current) drug therapy
CPT/HCPCS: 73502; 73552; 73564; 93971; 96372; 99284; J1885; J2360